=== PATIENT | male | born 1970 | race Caucasian/White ===

== ENCOUNTER 2022-10-29 08:56 | Day surgery (SDC) | payer BC, OTHER ==
[~2022-10-29 08:56] MED LIST: Lactated Ringers 1,000 ML IV SCH; Propofol 200 MG/20 ML SDV ONE; Sodium Chloride 0.9% 10 ML Syringe FLUSH PRN; Sodium Chloride 0.9% 2.5 ML Syringe FLUSH PRN; Sodium Chloride 0.9% 20 ML SDV IV PRN
== END 2022-10-29 10:55 | disposition home or self-care (01) ==
LOC: MW.SDS 08:56
PROVIDERS: ATTEND Surgery
DX: Z12.11 Encounter for screening for malignant neoplasm of colon (principal); K62.1 Rectal polyp; K57.30 Diverticulosis of large intestine without perforation or abscess without bleeding; F41.9 Anxiety disorder, unspecified; Z79.899 Other long term (current) drug therapy; Z68.30 Body mass index [BMI] 30.0-30.9, adult; Z98.890 Other specified postprocedural states
CPT/HCPCS: 45380; J2704; J7120; 00812

== ENCOUNTER 2023-10-07 07:53 | Day surgery (SDC) | payer OTHER ==
[~2023-10-07 07:53] MED LIST changes: +Albuterol 0.083% 2.5 MG/3 ML Neb Soln NEB PRN; +HYDROmorphone 1 MG/ML Syringe IVPUSH PRN; +Metoclopramide 10 MG/2 ML SDV IVPUSH PRN; +Morphine 2 MG/ML SYRINGE IVPUSH PRN; +Naloxone 0.4 MG/ML SDV IVPUSH PRN; +Ondansetron 4 MG/2 ML SDV IVPUSH PRN; -Propofol 200 MG/20 ML SDV ONE; +ceFAZolin 2 GM in Sodium Chloride 0.9% 50 ML IV ONE; +droPERidol 5 MG/2 ML SDV IVPUSH PRN; +fentaNYL 50 MCG/ML SDV IVPUSH PRN
[2023-10-07] MEDS ORDERED: Propofol 200 MG/20 ML SDV ONE (08:36)
[2023-10-07] MEDS ORDERED: Bupivacaine 0.5% 30 ML SDV ONE (08:36)
[2023-10-07] MEDS ORDERED: Dexmedetomidine 200 MCG/2 ML SDV ONE (08:36)
[2023-10-07] MEDS ORDERED: fentaNYL 100 MCG/2 ML SDV ONE (08:36)
[2023-10-07] MEDS ORDERED: Ropivacaine 0.5% 5 MG/ML 30 ML SDV ONE (08:44)
[2023-10-07] MEDS ORDERED: Water For Injection, Sterile 20 ML ONE (08:49)
[2023-10-07] MEDS ORDERED: Ondansetron 4 MG/2 ML SDV ONE (09:05)
[2023-10-07] MEDS ORDERED: Dexamethasone 4 MG/ML 5 ML MDV ONE (09:05)
[2023-10-07] MEDS ORDERED: ceFAZolin 2 GM Vial ONE (09:12)
[2023-10-07] MEDS ORDERED: Ketorolac 30 MG/ML SDV ONE (09:26)
== END 2023-10-07 10:25 | disposition home or self-care (01) ==
LOC: MW.SDS 07:53
PROVIDERS: ATTEND Surgery
DX: K42.9 Umbilical hernia without obstruction or gangrene (principal); K21.9 Gastro-esophageal reflux disease without esophagitis; F41.9 Anxiety disorder, unspecified; Z79.899 Other long term (current) drug therapy
CPT/HCPCS: 49591; 64486; J0690; J1100; J1885; J2405; J2704; J2795; J3010; J3490; J7120